=== PATIENT | female | born 1945 | race Caucasian/White ===

== ENCOUNTER 2024-07-26 10:05 | Emergency (ER) | payer MEDICARE, OTHER ==
[2024-07-26] VITALS (10 sets, daily range): BP systolic 143–169; BP diastolic 72–115
[~2024-07-26] VITALS: Ht 160 cm; Wt 58.9 kg
[~2024-07-26 10:05] MED LIST: AMOXICILLIN500 MG PO; ASPIRIN325 MG PO; ATENOLOL25 MG PO; CALCARB OR; CALCIUM600 M1 PO; CEPHALEXIN500 M1 PO; CHILD ASA81 MG OR; CIPROFLOXACN500 MG PO; COREG6.25 MG PO; DYAZIDE1 CAP OR; EFFIENT10 MG PO; EFFIENT5 MG PO; ENTRESTO 24-261 TAB; IRON25 MG OR; LANTUS100 MG/ML SC; LASIX 40 MG TAB40 MG PO; LIPITOR10 MG PO; LIPITOR20 MG OR; LISINOPRIL10 MG OR; LOSARTAN POTASS50 MG PO; MAXZIDE-2537.5 MG/TA PO; MOBIC15 MG PO; MOBIC7.5 MG PO; NOVOLIN 70/30 SC; NOVOLIN 701000 UNITS SC; PAROXETINE20 MG PO; PAXIL20 MG OR; PAXIL30 MG PO; POT CHLORIDE10 ME1 PO; PRILOSEC40 MG PO; PROBIOTIC; RANITIDINE300 MG PO; TENORMIN25 MG OR; THIAMINE HCL100 MG PO; ZANTAC300 MG OR
[2024-07-26] MEDS ORDERED: INSULIN REGULAR (HUMAN) 100 UNIT/ML INJ IV ONE (10:20)
[2024-07-26 10:48] LABS: BASO% 0.1 % (0-3); HEMATOCRIT 40.2 % (37.0-47.0); HEMOGLOBIN 12.3 g/dl (12.0-16.0); IMMATURE GRANULOCYTES 0.4 % (0.0-5.0); LYMPH% 13.4 % (15-41); MEAN CORPUSCULAR HGB 26.9 pG CALC (26.0-32.0); MEAN CORPUSCULAR HGB CONC 30.6 g/dL CAL (32.0-36.0); NEUT# 12.96 thou/uL (2.00-7.15); NEUT% 80.1 % (42-76); RED BLOOD COUNT 4.57 mill/uL (4.20-5.60)
[2024-07-26 10:54] LABS: CREATININE 1.1 mg/dL (0.5-1.0); TOTAL PROTEIN 6.6 g/dL (6.3-8.2)
[2024-07-26 11:08] LABS: BILIRUBIN, TOTAL 1.9 mg/dL (0.02-1.3); POTASSIUM 5.9 mmol/l (3.5-5.1)
[2024-07-26 11:37] LABS: URINE BILIRUBIN - DIPSTICK Negative (NEGATIVE); URINE BLOOD DIPSTICK Negative (NEGATIVE); URINE COLOR Yellow; URINE GLUCOSE - DIPSTICK >=1000 mg/dL (NEGATIVE); URINE KETONE 15 mg/dL (NEGATIVE); URINE LEUK ESTERASE Negative (NEGATIVE); URINE NITRITE - DIPSTICK Negative (Negative); URINE PROTEIN - DIPSTICK Negative (NEG-TRACE); URINE SPECIFIC GRAVITY 1.015; URINE UROBILINOGEN - DIPSTICK 0.2 E.U./dL (0.2)
[2024-07-26] MEDS ORDERED: ASPIRIN 81 MG/TAB PO ONE (12:20)
[2024-07-26] MEDS ORDERED: SODIUM CHLORIDE IV ONE (12:25)
[2024-07-26] MEDS ORDERED: [UNRECOGNIZED DRUG - OTHER] IV ONE (12:25)
[2024-07-26] MEDS ORDERED: INSULIN REGULAR (HUMAN) IN SOD 100 ML IV PRN (12:25)
[2024-07-26 13:24] LABS: ALBUMIN 4.4 g/dL (3.2-5.0); BILIRUBIN, TOTAL 1.7 mg/dL (0.02-1.3); CREATININE 1.1 mg/dL (0.5-1.0); TOTAL PROTEIN 7.1 g/dL (6.3-8.2)
[2024-07-26 13:32] LABS: POTASSIUM 4.7 mmol/l (3.5-5.1)
== END 2024-07-26 13:46 ==
LOC: ED 10:05
PROVIDERS: Family Medicine
DX: I21.4 Non-ST elevation (NSTEMI) myocardial infarction (principal); E10.65 Type 1 diabetes mellitus with hyperglycemia; I10 Essential (primary) hypertension